=== PATIENT | male | born 1995 | race Caucasian/White ===

== ENCOUNTER 2017-02-08 22:33 | Emergency (ER) | payer OTHER ==
[~2017-02-08] VITALS: Ht 175.3 cm; Wt 70.2 kg
[2017-02-08 22:38] VITALS: TEMP 36.6; Ht 175.3 cm; Wt 70.2 kg
[2017-02-08] MEDS ORDERED: CEPH500C2 PO (22:57)
[2017-02-08] MEDS ORDERED: CEPHALEXIN 500MG HOME PACK 1 EA BTL PO ONE (23:00)
[2017-02-08] MEDS ORDERED: MULT-506 PO (23:12)
[2017-02-08] MEDS ORDERED: SULF800T23 PO (23:12)
--- NOTE | 2017-02-08 23:17 | EMERGENCY ROOM VISIT NOTE ---
History First contact with patient: 22:42 Chief Complaint: WOUND INFECTION Stated Complaint: INGROWN TOENAIL ON RIGHT FOOT,POSSIBLE INFECTION History of Present Illness The patient is a 21 year old male who presents to the Emergency Room with complaints of right great toe pain who had A partial toenail removal for ingrown toenail yesterday by urgent care and was placed on Bactrim. Patient states he is concerned that there might be infection. Patient states some of the swelling has subsided but he is concerned that there is still redness and black to the area. The area was cauterized with silver nitrate. Patient denies fevers, purulent discharge, injury to the area, numbness, tingling or new injury. Patient states he went to urgent care twice and the first placed him on antibiotics and the second time there is due to the partial toenail removal. Patient is in [facility] and has to wear a boot. This is bothersome for him. Review of Systems See HPI for pertinent positives & negatives. A total of 6 systems reviewed and were otherwise negative. Past Medical/Surgical History None Social History Smoking Status: Never Smoker Smokeless Tobacco Use: No Drug Use: none Occupation Status: [email or web address] student Current/Historical Medications Scheduled Cephalexin Monohydrate (Keflex), 500 MG PO QID Physical Exam Vital Signs Date Time Temp Pulse Resp B/P (MAP) Pulse Ox O2 Delivery O2 Flow Rate FiO2 02/08/17 22:38 36.6 81 18 138/84 98 Room Air Physical Exam VITALS: Vitals are noted on the nurse's note and reviewed by myself. Vital signs stable. GENERAL: Pleasant male, in no acute distress, nondiaphoretic, well-developed well-nourished. SKIN: Capillary reflex less than 2 seconds. MUSCULOSKELETAL: No gross musculoskeletal defects. No pedal edema. Right great toe with partial nail removal secondary to the ingrown toenail with some black to the area from cauterization from silver nitrate. No purulent discharge. Slightly tender to palpation to the lateral aspect of the right great toe with minimal erythema present and sensation is intact. She has full extension and flexion of the toe. No foot tenderness. Pedal pulses +2 NEURO: Patient was alert and oriented to person place and time. Normal sensation to light and sharp touch. No focal neurological deficits. Medical Decision & Procedures ED Course Prior records reviewed and summarized as above. Triage Nursing notes reviewed. The patient's history was concerning for swelling and redness of the skin. Differential diagnosis: Etiologies such as cellulitis, abscess, MRSA infection, necrotizing fasciitis, dermatitis, drug eruption, as well as others were entertained.. Physical examination: The physical examination was consistent with healing ingrown toenail from partial nail removal ER treatment provided: Wound care, postop shoe and crutches On reassessment the patient felt better. Diagnostics interpreted by me: Deferred This appears to be isolated ingrown toenail that was treated by urgent care that appears to be healing with a little bit of erythema present. Patient was started on antibiotics. He was counseled that the silver nitrate might take a few weeks for to resolve from the discoloration. He was counseled on wound care and verbalized understanding this. He is advised follow-up orthopedics in a few days. He was given a profile for [employer]. He is advised to use crutches and postop show until pain free. He was advised to return to the ER really for fevers, spreading of redness, worsening signs or symptoms or as needed. By the evaluation outlined above emergent etiologies such as abscess, necrotizing fasciitis, as well as others were deemed relatively unlikely. The pt informed about the findings as listed above. All questions were answered and pleased with the treatment. Return instructions were outlined and the patient was discharged in stable condition. Outpatient prescription management: keflex Referral: The patient was referred back to Ortho for follow-up in 2 to 3 days for a recheck of the current condition. Medical Decision As above Medication Reconcilliation Current Medication List: was personally reviewed by me Blood Pressure Screening Patient's blood pressure: Normal blood pressure Impression Primary Impression: Cellulitis of toe of right foot Departure Information Dispostion Home / Self-Care Condition GOOD Prescriptions Cephalexin Monohydrate (KEFLEX) 500 Mg Cap 500 MG PO QID for 6 Days, #24 CAP Prov: Aspen Almanza ., LENNY 02/08/17 Referrals Avelino Downing M.D. Forms WORK / SCHOOL INSTRUCTIONS, HOME CARE DOCUMENTATION FORM, Days without gym or sports: 14 days School Instructions, Additional Instructions: No boot to right foot for 2 weeks, use post op shoe. No PT weeks. IMPORTANT VISIT INFORMATION Patient Instructions [facility], ED Ingrown Toenail Excised Additional Instructions Continue your Bactrim as prescribed by urgent care. Bacitracin and bandage daily until infection heals over. The black to your toe my take up to 2 weeks to resolve from the silver nitrate that was applied at urgent care. Wear postop shoe and crutches until pain is resolved. No PT or boot for the next 2 weeks. Cephalexin(Keflex) 500mg: Take one pill four times daily for 10 days for your skin infection. All antibiotics can cause diarrhea. If this occurs and you feel worse or it does not resolve in 1-2 days follow up with your doctor or return to the Emergency Department as this could be signs of serious underlying problems. Any medication can cause an allergic reaction, stop the pills immediately and return to the ER for rash, hives, breathing difficulties, or swelling. Ibuprofen(Motrin, Advil) may be used for fever or pain. Use 600mg every six hours as needed. Take with food. Avoid using more than 2400mg in a 24 hour period. Do not use 2400mg per day for more than three consecutive days without physician direction. Prolonged inappropriate use can lead to stomach upset or ulcers. (AND/OR) Acetaminophen(Tylenol) may be used for fever or pain. Use 1000mg every six hours as needed. Avoid using more than 3000mg in a 24 hour period. Wam soaks 3 times a day as needed for your toe. Rest and drink plenty of fluids. Continue current medications. Return to the ER for severe pain, fevers, spreading redness, or any worsening of your condition. Follow up with orthopedics within 2-3 days for a recheck of the current condition. School Instructions Additional School Instructions: No boot to right foot for 2 weeks, use post op shoe. No PT 2 weeks.
[2017-02-08 23:18] VITALS: BP 124/67; PULSE 85; O2SAT 98
== END 2017-02-08 23:18 | disposition home or self-care (01) ==
LOC: C.EDB 22:36 → C.EDA 23:18
DX: L03.031 Cellulitis of right toe (principal)